=== PATIENT | male | born 1970 ===

== ENCOUNTER 2017-10-06 12:42 | Emergency (ER) | payer MEDICAID, OTHER ==
[~2017-10-06] VITALS: Ht 170.2 cm; Wt 88.0 kg
[2017-10-06] MEDS ORDERED: HYDR-3974 PO (13:02)
[2017-10-06] MEDS ORDERED: ESCI10TA PO (13:02)
[2017-10-06] MEDS ORDERED: MIRT15TA7 PO (13:02)
[2017-10-06] MEDS ORDERED: HYDROMORPHONE 1 MG/1 ML DISP.SYRIN IM ONE (13:30)
[2017-10-06] MEDS ORDERED: ONDANSETRON 4 MG/2 ML VIAL IM ONE (13:30)
[2017-10-06] MEDS ORDERED: ONDANSETRON 4 MG/2 ML VIAL ONE (13:48)
[2017-10-06] MEDS ORDERED: HYDROMORPHONE 2 MG/1 ML DISP.SYRIN ONE (13:48)
--- NOTE | 2017-10-06 14:24 | NUR ---
pt out of ER for ct.
[2017-10-06 15:45] LABS: BASOPHILS # (AUTO) 0.1 K/uL (0.0-8.0); BASOPHILS % (AUTO) 0.7 % (0.0-2.0); EOSINOPHILS # (AUTO) 0.2 K/uL (0.0-0.7); EOSINOPHILS % (AUTO) 2.6 % (0.0-7.0); HEMATOCRIT 41.1 % (36.7-47.1); HEMOGLOBIN 14.2 g/dL (12.5-16.3); LYMPHOCYTES % (AUTO) 22.6 % (20.5-51.5); MEAN CORPUSCULAR HEMOGLOBIN 29.6 uug (23.8-33.4); MEAN CORPUSCULAR HGB CONC 35 g/dL (32.5-36.3); MEAN CORPUSCULAR VOLUME 85.6 fL (73.0-96.2); MONOCYTES # (AUTO) 0.9 K/uL (2.0-10.0); MONOCYTES % (AUTO) 9.9 % (0.0-11.0); NEUTROPHILS # (AUTO) 5.6 K/uL (1.8-8.9); NEUTROPHILS % (AUTO) 64.2 % (38.5-71.5); PLATELET COUNT (AUTO) 222 K/uL (152-348); WHITE BLOOD COUNT (AUTO) 8.7 K/uL (3.6-10.2)
[2017-10-06] MEDS ORDERED: KETOROLAC TROMETHAMINE 30 MG INJ IVP ONE (15:45)
[2017-10-06 15:52] LABS: CREATININE 1.1 mg/dL (0.6-1.3)
[2017-10-06 15:52] LABS: *BILIRUBIN,URIN NEGATIVE (NEGATIVE); *BLOOD, URINE NEGATIVE (NEGATIVE); *CLARITY,URINE CLEAR (CLEAR); *COLOR,URINE YELLOW (YELLOW); *KETONES,URINE NEGATIVE (NEGATIVE); *PROTEIN,URINE NEGATIVE (NEGATIVE); *UROBILINOGEN,URINE 0.2 E.U./dl (NORMAL); LEUKOCYTE ESTERASE ,URINE NEGATIVE (NEGATIVE); NITRITE, URINE NEGATIVE (NEGATIVE); UGLUCOSE NEGATIVE (NEGATIVE)
[2017-10-06 15:58] LABS: BILIRUBIN,DIRECT 0.1 mg/dL (0.0-0.2); BILIRUBIN,TOTAL 0.4 mg/dL (0.2-1.0); TOTAL PROTEIN, SERUM 5.9 g/dL (6.4-8.2)
[2017-10-06 15:59] LABS: RBC,URINE 0-3 /HPF (0-3); WBC,URINE 0-3 /HPF (0-3)
[2017-10-06] MEDS ORDERED: KETOROLAC TROMETHAMINE 30 MG INJ ONE (15:59)
--- NOTE | 2017-10-06 17:04 | NUR ---
DINNER PROVIDED PER PT'S REQUEST, PT DENIES NAUSEA.
--- NOTE | 2017-10-06 20:44 | NUR ---
Patient discharged to home in stable conditon. Written and verbal after care instructions given. Patient verbalizes understanding of instructions. Taxi voucher supplied.
== END 2017-10-06 20:47 | disposition home or self-care (01) ==
LOC: ER 12:43
DX: M54.5 Low back pain (principal); Z88.0 Allergy status to penicillin; Z90.49 Acquired absence of other specified parts of digestive tract
CPT/HCPCS: 36415; 70450; 72072; 72125; 85025; 93005; A4663; J1170; J1885; J2405